=== PATIENT | female | born 1980 | race African-American/Black ===

== ENCOUNTER 2018-06-04 21:17 | Emergency (ER) | payer OTHER ==
[~2018-06-04] VITALS: Ht 157.5 cm; Wt 61.7 kg
[~2018-06-04 21:17] MED LIST: GLEEVEC400 MG PO; NILO150C PO; OXYC1TAB7 PO
[2018-06-04 21:20] VITALS: BP 156/67
[2018-06-04] MEDS ORDERED: HYDROcodone/APAP 5/325MG 1 TAB TABLET PO ONE ×2 (22:00→22:30)
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
== END 2018-06-05 | disposition home or self-care (01) ==
LOC: ER 21:17
DX: S20.212A Contusion of left front wall of thorax, initial encounter (principal); V89.2XXA Person injured in unspecified motor-vehicle accident, traffic, initial encounter; Y93.89 Activity, other specified; Y92.89 Other specified places as the place of occurrence of the external cause; Y99.8 Other external cause status
CPT/HCPCS: 71046; 81025; 99283